=== PATIENT | female | born 1995 | race African-American/Black ===

== ENCOUNTER 2017-07-06 12:15 | Emergency (ER) | payer BC, OTHER ==
[2017-07-06 12:30] VITALS: BP 130/70; PULSE 77; TEMP 98.6; BMI 23.4
--- NOTE | 2017-07-06 13:38 | PDOC ---
History of Present Illness - General Chief Complaint: Ear Problem Stated Complaint: EAR PROBLEM Time Seen by Provider: 07/06/17 12:55 - History of Present Illness Initial Comments: 07/06/17 13:28 CHIEF COMPLAINT: ear problem HISTORY OF PRESENT ILLNESS: 21 yo F presents to [facility] with decreased hearing to R ear x 1 week "and I'm starting to feel it on my left side now too. " Denies nausea, vomitng, diarrhea, chills, fever. Patient denies any fever, chills, nausea, vomiting diarrhea. No recent travel or sick contacts. PAST MEDICAL HISTORY: Denies past medical history FAMILY HISTORY: Denies SOCIAL HISTORY: Denies tobacco, alcohol, illicit drug use. SURGICAL HISTORY: Denies ALLERGIES: No known drug allergies REVIEW OF SYSTEMS General/Constitutional: Denies fever or chills. HEENT: Decreased hearing to L ear. Denies change in vision. Cardiovascular: Denies chest pain or shortness of breath. Respiratory: Denies cough, wheezing, or hemoptysis. Gastrointestinal: Denies nausea, vomiting, diarrhea. PHYSICAL EXAM General Appearance: Well-appearing, appropriately dressed. No apparent distress. HEENT: Absent light reflex to R TM, no mastoid or preauricular tenderness. EOMI , PERRLA, normal voice, pharynx normal. No conjunctival pallor. No photophobia , scleral icterus. Respiratory/Chest: Lungs CTAB. Cardiovascular: RRR. S1, S2. Musculoskeletal/Extremities: Normal inspection. FROM of all extremities, normal capillary refill. Pelvis Stable. No CVA tenderness. No tenderness to extremities, pedal edema, swelling, erythema or deformity. Integumentary: Appropriate color, dry, warm. No cyanosis, erythema, jaundice or rash Neurologic: magnetic resonance imaging director II-XII intact. Fully oriented, alert. Appropriate mood/affect. Motor strength 5/5. No appreciable EOM palsy, facial droop or sensory deficit. Past History - Past Medical History Allergies/Adverse Reactions: Allergies Allergy/AdvReac Type Severity Reaction Status Date / Time No Known Allergies Allergy Verified 07/06/17 12:31 Home Medications: Ambulatory Orders Amoxicillin - [Amoxicillin 500mg Capsule -] 500 mg PO BID #14 capsule 07/06/17 COPD: No Other medical history: DENIES MEDICAL HX - Suicide/Smoking/Psychosocial Hx Smoking History: Never smoked *Physical Exam - Vital Signs Last Vital Signs Temp Pulse Resp BP Pulse Ox 98.6 F 77 18 130/70 100 07/06/17 12:28 07/06/17 12:28 07/06/17 12:28 07/06/17 12:28 07/06/17 12:28 *DC/Admit/Observation/Transfer Diagnosis at time of Disposition: Acute otitis media Qualifiers: Otitis media type: other nonsuppurative Laterality: right Recurrence: not specified as recurrent Qualified Code(s): H65.191 - Other acute nonsuppurative otitis media, right ear - Discharge Dispostion Disposition: HOME Condition at time of disposition: Stable - Prescriptions Prescriptions: Amoxicillin - [Amoxicillin 500mg Capsule -] 500 mg PO BID #14 capsule - Referrals Referrals: Jordi Cardona MD [Primary Care Provider] - - Patient Instructions Printed Discharge Instructions: Middle Ear Infection Additional Instructions: Please take medications as prescribed. Follow up with your [facility] doctor next week. If you develop any fever, chills, nausea, vomiting, or diarrhea, or you develop any worsening ear pain or hearing loss, please return to the ER. - Post Discharge Activity
== END 2017-07-06 13:44 | disposition home or self-care (01) ==
LOC: JERFT 12:15
DX: H65.191 Other acute nonsuppurative otitis media, right ear (principal)
CPT/HCPCS: 99281-25